=== PATIENT | female | born 1950 | race Native Hawaiian/Other Pacific Islander ===

== ENCOUNTER 2016-11-13 17:51 | Emergency (ER) | payer OTHER ==
[~2016-11-13] VITALS: Ht 167.6 cm; Wt 59.4 kg
== END 2016-11-13 20:25 | disposition home or self-care (01) ==
LOC: ED 17:51
DX: S46.011A Strain of muscle(s) and tendon(s) of the rotator cuff of right shoulder, initial encounter (principal); M25.511 Pain in right shoulder; X50.9XXA Other and unspecified overexertion or strenuous movements or postures, initial encounter; Y92.098 Other place in other non-institutional residence as the place of occurrence of the external cause
CPT/HCPCS: 96372; 99282; J1885

== ENCOUNTER 2017-03-05 11:49 | Outpatient (CLI) | payer OTHER ==
[2017-03-05 13:25] LABS: PLATELET COUNT 193 K/uL (152-353)
[2017-03-05 13:55] LABS: POTASSIUM 4.3 mmol/L (3.6-5.2)
== END 2017-03-05 19:41 | disposition home or self-care (01) ==
LOC: LAB 11:49
PROVIDERS: Physician Assistant
DX: F41.8 Other specified anxiety disorders (principal); M19.042 Primary osteoarthritis, left hand; Z79.899 Other long term (current) drug therapy; Z51.81 Encounter for therapeutic drug level monitoring
CPT/HCPCS: 80053; 80061; 84439; 84443; 85027

== ENCOUNTER 2017-03-13 09:59 | Outpatient (CLI) | payer OTHER | END 2017-03-13 23:00 | disposition home or self-care (01) | LOC: MAMMO 09:59 | DX: Z12.31 Encounter for screening mammogram for malignant neoplasm of breast (principal) ==

== ENCOUNTER 2017-09-21 09:32 | Outpatient (CLI) | payer OTHER | END 2017-09-21 19:52 | disposition home or self-care (01) | LOC: LABW 09:32 | PROVIDERS: Physician Assistant | DX: E78.00 Pure hypercholesterolemia, unspecified (principal) | CPT/HCPCS: 36415; 80061 ==

== ENCOUNTER 2017-12-20 09:20 | Outpatient (CLI) | payer OTHER, MEDICARE | END 2017-12-20 20:12 | disposition home or self-care (01) | LOC: LABW 09:20 | DX: R79.89 Other specified abnormal findings of blood chemistry (principal); E78.00 Pure hypercholesterolemia, unspecified | CPT/HCPCS: 36415; 84439; 84443 ==

== ENCOUNTER 2018-02-23 20:36 | Emergency (ER) | payer OTHER, MEDICARE ==
[~2018-02-23] VITALS: Ht 167.6 cm; Wt 55.8 kg
[2018-02-23 21:02] VITALS: TEMP 98.8
[2018-02-23] MEDS ORDERED: VENLAFAXINE150 M1 PO (21:04)
[2018-02-23] MEDS ORDERED: MOBIC7.5 M1 PO (21:04)
[2018-02-23] MEDS ORDERED: CLON1TAB18 PO (21:04)
[2018-02-23 21:28] LABS: PLATELET COUNT 174 K/uL (152-353)
[2018-02-23 21:37] LABS: POTASSIUM 3.6 mmol/L (3.6-5.2)
[2018-02-23 22:45] VITALS: BP 134/76
== END 2018-02-23 22:46 | disposition home or self-care (01) ==
LOC: ED 20:36
PROVIDERS: Emergency Medicine
DX: J11.1 Influenza due to unidentified influenza virus with other respiratory manifestations (principal)
CPT/HCPCS: 36415; 80053; 85027; 87502; 87651; 94664; 99283; J2930

== ENCOUNTER 2018-03-27 09:38 | Outpatient (CLI) | payer OTHER, MEDICARE ==
[~2018-03-27 09:38] MED LIST: CLON1TAB18 PO; MOBIC7.5 M1 PO; VENLAFAXINE150 M1 PO
== END 2018-03-27 23:59 | disposition home or self-care (01) ==
LOC: MAMMO 09:38
DX: Z12.31 Encounter for screening mammogram for malignant neoplasm of breast (principal)

== ENCOUNTER 2018-09-20 09:38 | Outpatient (CLI) | payer OTHER, MEDICARE ==
[2018-09-20 10:10] LABS: PLATELET COUNT 180 K/uL (152-353)
[2018-09-20 10:13] LABS: POTASSIUM 3.9 mmol/L (3.6-5.2)
== END 2018-09-20 23:43 | disposition home or self-care (01) ==
LOC: LABW 09:38
PROVIDERS: Physician Assistant
DX: Z00.00 Encounter for general adult medical examination without abnormal findings (principal); E78.00 Pure hypercholesterolemia, unspecified; Z79.899 Other long term (current) drug therapy; E55.9 Vitamin D deficiency, unspecified
CPT/HCPCS: 36415; 80053; 80061; 82306; 84443; 85027

== ENCOUNTER 2018-10-07 08:56 | Outpatient (CLI) | payer OTHER, MEDICARE | END 2018-10-07 23:59 | disposition home or self-care (01) | LOC: US 08:56 | DX: Z00.00 Encounter for general adult medical examination without abnormal findings (principal); Z13.6 Encounter for screening for cardiovascular disorders; Z13.820 Encounter for screening for osteoporosis; N95.8 Other specified menopausal and perimenopausal disorders ==

== ENCOUNTER 2019-01-20 10:59 | Outpatient (CLI) | payer OTHER, MEDICARE ==
[2019-01-20 11:28] LABS: PLATELET COUNT 219 K/uL (152-353)
== END 2019-01-20 19:08 | disposition home or self-care (01) ==
LOC: LAB 10:59
PROVIDERS: Physician Assistant
DX: M06.80 Other specified rheumatoid arthritis, unspecified site (principal); T14.8XXA Other injury of unspecified body region, initial encounter
CPT/HCPCS: 85027